=== PATIENT | female | born 1975 | race Caucasian/White ===

== ENCOUNTER 2020-02-26 08:12 | Outpatient (CLI) | payer OTHER, SELFPAY ==
--- NOTE | ~2020-02-26 | MM_ITS ---
EXAMINATION: MM scrn mera implant BI w iron HISTORY: Screening mammogram TECHNIQUE: Craniocaudal and mediolateral oblique 3-D tomosynthesis images with implant displacement a nd synthetic 2-D images were generated. Craniocaudal and mediolateral oblique views of the breasts wi thout implant displacement were obtained using full field digital mammography. CAD analysis was submi tted and interpreted. COMPARISON: 02/09/1920 01/26/2018, 07/30/2015 BREAST PARENCHYMAL COMPOSITION: There are scattered areas of fibroglandular density. FINDINGS: There is no evidence of suspicious mass, calcification, or architectural distortion to sugg est malignancy in either breast. There has been no suspicious interval change. IMPRESSION: 1. No mammographic evidence of malignancy. 2. Recommend routine screening mammography in one year. BI-RADS Category 1: Negative Reviewed, dictated and finalized at location A.
== END 2020-02-26 08:13 | disposition home or self-care (01) ==
PROVIDERS: PCP Family Medicine; Visit Provider Obstetrics & Gynecology
DX: Z12.31 Encounter for screening mammogram for malignant neoplasm of breast (principal)
CPT/HCPCS: 77063; 77067

== ENCOUNTER 2021-03-02 08:45 | Outpatient (CLI) | payer OTHER, SELFPAY ==
--- NOTE | ~2021-03-02 | MM_ITS ---
EXAMINATION: MM scrn mera implant BI w iron HISTORY: Screening mammogram TECHNIQUE: Craniocaudal and mediolateral oblique 3-D tomosynthesis images with implant displacement a nd synthetic 2-D images were generated. Craniocaudal and mediolateral oblique views of the breasts wi thout implant displacement were obtained using full field digital mammography. CAD analysis was submi tted and interpreted. COMPARISON: Comparison to multiple prior studies sequentially, with oldest reviewed study dated 01/26. BREAST PARENCHYMAL COMPOSITION: The breasts are heterogeneously dense, which may obscure small masses . FINDINGS: There is no evidence of suspicious mass, calcification, or architectural distortion to sugg est malignancy in either breast. There has been no suspicious interval change. IMPRESSION: 1. No mammographic evidence of malignancy. 2. Recommend routine screening mammography in one year. BI-RADS Category 1: Negative Reviewed, dictated and finalized at location A.
== END 2021-03-02 08:46 | disposition home or self-care (01) ==
LOC: ANHIMG 08:46
PROVIDERS: PCP Family Medicine; Visit Provider Obstetrics & Gynecology
DX: Z12.31 Encounter for screening mammogram for malignant neoplasm of breast (principal)
CPT/HCPCS: 77063; 77067

== ENCOUNTER 2021-12-07 00:04 | Day surgery (SDC) | payer OTHER, SELFPAY ==
[2021-11-18 12:57] VITALS: BMI 21.5
[2021-12-07 07:14] VITALS: BP 103/62; PULSE 63; RESP 16; TEMP 36.4; O2SAT 100
[2021-12-07] MEDS: LACTATED RINGERS 1,000 ML 150 ML IV CONT (07:20)
--- NOTE | 2021-12-07 07:58 | PM.HPGS ---
History of Present Illness History of Present Illness Consent: Risks, benefits, and alternatives have been discussed and questions answered. Patient agrees to proceed with procedure. Chief complaint: neoplasm screening Narrative: Adriana Esquivel is a 46 year old female here for screening colonoscopy Review of Systems Constitutional: Constitutional: Denies headache(s) and Denies weakness Eyes: Eyes: Denies blurry vision ENT: Reports Normal hearing present, Denies headache(s) and Denies neck pain Cardiovascular: Cardiovascular: Denies chest pain and Denies dyspnea Respiratory: Respiratory: Denies dyspnea Gastrointestinal: Gastrointestinal: Reports no additional gastrointestinal complaints Genitourinary: Genitourinary: Denies dysuria Musculoskeletal: Musculoskeletal: Denies neck pain Integumentary/Breasts: Skin/Breast: Denies dry skin Neurologic: Reports Normal hearing present, Denies headache(s) and Denies weakness Psychiatric: Psychiatric: Denies anxiety Endocrine: Endocrine: Denies change in body appearance Hematologic/Lymphatic: Hematologic/Lymphatic: Denies easy bleeding Allergic/Immunologic: Allergic/Immunologic: Denies urticaria PMF Past Medical History Medical History (Updated 12/07/21 @ 07:59 by Les Tran MD) Colon cancer screening History of asthma Irritable bowel syndrome with diarrhea Surgical History Surgical History History of breast augmentation (~08/2015) History of endometrial ablation (~2018) History of tubal ligation (~2017) Previous section x 3 2001, 2006, 2010 S/P cholecystectomy Family History Family History Mother Hypertension Father Family history of elevated blood lipids Grandparent Cerebrovascular accident Carcinoma of colon Diabetes mellitus Social History Social History Smoking status: Never smoker Second hand tobacco smoke exposure: No Alcohol intake: current Drinks per week: 3 Substance use type: does not use Living arrangements: with family Spiritual care concerns: No Meds Home Medications and Allergies Home Medications Medication Instructions Recorded Confirmed Type multivitamin (Daily Multi-Vitamin 1 tablet PO DAILY 06/11/19 12/07/21 History tablet) lactobacillus combination no.8 3 3,000 mmu cells PO DAILY 07/14/20 12/07/21 History billion cell capsule (Adult Probiotic) cholecalciferol (vitamin D3) 50 50 mcg PO DAILY 05/06/21 12/07/21 History mcg (2,000 unit) capsule ferrous sulfate 325 mg (65 mg 325 mg PO DAILY #90 tabs 05/06/21 12/07/21 Rx iron) tablet,delayed release Allergies Allergy/AdvReac Type Severity Reaction Status Date / Time No Known Allergies Allergy Verified 12/07/21 07:13 Vital Signs Vital Signs - 24 hr 12/07/21 07:14 Temperature 97.5 F L Pulse Rate 63 Respiratory Rate 16 Blood Pressure 103/62 Pulse Oximetry 100 Oxygen Delivery Room Air Exam Const: General: comfortable and no acute distress HENMT: General nose exam: Normal nares present Eyes: General: appearance normal, both eyes and all related structures Neck: Neck: no JVD Resp: Auscultation: clear to auscultation bilaterally Cardio: Rate: regular rate Rhythm: regular rhythm GI: Inspection: non-distended GI Palp: Yes Soft to palpation Skin: General skin exam: normal color Neuro: General: gait normal Speech: normal speech Extrem: General: normal to inspection Psych: Mental Status: mental status grossly normal Assessment and Plan Assessment and plan (1) Colon cancer screening: Code(s): Z12.11 - Encounter for screening for malignant neoplasm of colon Status: Acute Assessment and Plan: colonoscopy
--- NOTE | 2021-12-07 08:01 | WPDANESEPPF ---
Anes - Initial Pre Proc Eval Procedure: Operation Date: 12/07/21 08:30 Proposed Procedures p Screening Colonoscopy - Les Tran MD Date/Time: 12/07/21 08:01 Surgeon: Les Tran MD Pre Op Diagnosis: neoplasm screening Patient Data Age: 46 Gender: F Height: 1.63 m Weight: 54.4 kg Last Vital Signs Temp 97.5 F L 12/07/21 07:14 Pulse 63 12/07/21 07:14 Resp 16 12/07/21 07:14 BP 103/62 12/07/21 07:14 Pulse Ox 100 12/07/21 07:14 O2 Del Method Room Air 12/07/21 07:14 Allergies Allergy/AdvReac Type Severity Reaction Status Date / Time No Known Allergies Allergy Verified 12/07/21 07:13 Home Medications Medication Instructions Recorded Confirmed Type multivitamin (Daily Multi-Vitamin 1 tablet PO DAILY 06/11/19 12/07/21 History tablet) lactobacillus combination no.8 3 3,000 mmu cells PO DAILY 07/14/20 12/07/21 History billion cell capsule (Adult Probiotic) cholecalciferol (vitamin D3) 50 50 mcg PO DAILY 05/06/21 12/07/21 History mcg (2,000 unit) capsule ferrous sulfate 325 mg (65 mg 325 mg PO DAILY #90 tabs 05/06/21 12/07/21 Rx iron) tablet,delayed release Patient hx anesthesia problems: none Family hx anesthesia problems: none Results Review: All pre-operative results and documents have been reviewed as part of the pre-operative evaluation. [facility] Past Medical History Medical History (Updated 12/07/21 @ 07:59 by Les Tran MD) Colon cancer screening History of asthma Irritable bowel syndrome with diarrhea Surgical History Surgical History History of breast augmentation (~08/2015) History of endometrial ablation (~2018) History of tubal ligation (~2018) Previous section x 3 2001, 2005, 2009 S/P cholecystectomy Family History Family History Mother Hypertension Father Family history of elevated blood lipids Grandparent Cerebrovascular accident Carcinoma of colon Diabetes mellitus Social History Social History Smoking status: Never smoker Second hand tobacco smoke exposure: No Alcohol intake: current Drinks per week: 3 Substance use type: does not use Living arrangements: with family Spiritual care concerns: No Anes - Eval Final PreProcedure Day of Procedure 12/07/21 08:01 Patient weight: normal Heart: regular rate and rhythm Lungs: clear to auscultation Airway: Mallampati scale class II Neurological: alert and oriented Last oral intake: >/= 8 hours ASA classification: II Emergent: no Anesthetic plan: proceed Anesthesia type and monitoring: general GIVS and standard monitoring Results Review: All pre-operative results and documents have been reviewed as part of the pre-operative evaluation. Informed Consent: The patient's anesthetic plan and its attendant risks and benefits were discussed with the patient/family/POA. Questions were solicited and answers provided to the satisfaction of the patient/family/POA.
[2021-12-07 08:24] VITALS: BP 112/65; PULSE 80; RESP 23; O2SAT 98
[2021-12-07 08:34] VITALS: BP 117/68; PULSE 67; RESP 27; O2SAT 100
[2021-12-07 08:44] VITALS: BP 113/66; PULSE 62; RESP 19; O2SAT 99
== END 2021-12-07 08:53 | disposition home or self-care (01) ==
PROVIDERS: PCP Family Medicine; Referring Provider Obstetrics & Gynecology; Visit Provider Internal Medicine Gastroenterology
PROC: 0DJD8ZZ Inspection of Lower Intestinal Tract, Via Natural or Artificial Opening Endoscopic (ICD-10-PCS; CPT 45378; principal; 2021-12-07 08:30)
DX: Z12.11 Encounter for screening for malignant neoplasm of colon (principal); K64.8 Other hemorrhoids; J45.909 Unspecified asthma, uncomplicated; K58.0 Irritable bowel syndrome with diarrhea; Z90.49 Acquired absence of other specified parts of digestive tract
CPT/HCPCS: 45378; J2704; J7120

== ENCOUNTER 2022-04-09 08:41 | Outpatient (CLI) | payer OTHER, SELFPAY ==
--- NOTE | ~2022-04-09 | MM_ITS ---
EXAMINATION: MM scrn mera implant BI w iron HISTORY: Screening mammogram TECHNIQUE: Craniocaudal and mediolateral oblique 3-D tomosynthesis images with implant displacement a nd synthetic 2-D images were generated. Craniocaudal and mediolateral oblique views of the breasts wi thout implant displacement were obtained using full field digital mammography. CAD analysis was submi tted and interpreted. COMPARISON: Comparison to multiple prior studies sequentially, with oldest reviewed study dated 01/26. BREAST PARENCHYMAL COMPOSITION: There are scattered areas of fibroglandular density. FINDINGS: There are bilateral subpectoral silicone implants. There is a new focal asymmetry in the up per outer quadrant of the right breast on implant views. The left breast is stable without evidence f or malignancy. IMPRESSION: 1. New focal left breast asymmetry upper outer quadrant of the right breast. 2. Additional mammographic views and possible breast ultrasound are recommended. BI-RADS Category 0: Incomplete: Needs additional imaging evaluation. Reviewed, dictated and finalized at location B. URE PRESS SET UP OPERATOR IMPRESSION: 1. New focal left breast asymmetry upper outer quadrant of the right breast. 2. Additional mammographic views and possible breast ultrasound are recommended . BI-RADS Category 0: Incomplete: Needs additional imaging evaluation.
== END 2022-04-09 08:42 | disposition home or self-care (01) ==
LOC: ANHIMG 08:44
PROVIDERS: PCP Family Medicine; Visit Provider Obstetrics & Gynecology
DX: Z12.31 Encounter for screening mammogram for malignant neoplasm of breast (principal); R92.8 Other abnormal and inconclusive findings on diagnostic imaging of breast
CPT/HCPCS: 77063; 77067

== ENCOUNTER 2022-04-29 12:31 | Outpatient (CLI) | payer OTHER, SELFPAY ==
--- NOTE | ~2022-04-29 | MMUS_ITS ---
EXAMINATION: MM diag mera implant RT w iron, US breast RT limited HISTORY: New focal right breast asymmetry reported in upper outer quadrant TECHNIQUE: Additional 3-D tomosynthesis images of the right breast were performed and synthetic 2-D i mages were generated. CAD analysis was submitted and interpreted. High resolution right upper outer q uadrant and right lower outer quadrant breast ultrasound was performed. COMPARISON: 04/09/2022 bilateral screening mammogram FINDINGS: MAMMOGRAPHIC FINDINGS: No suspicious mass or architectural distortion, malignant calcification, skin thickening or retractio n of the right breast is detected. ULTRASOUND: No suspicious mass or shadowing is detected in the upper outer and lower-outer quadrants of the right breast. IMPRESSION: 1. No mammographic evidence of malignancy 2. Routine annual mammographic screening is recommended. BI-RADS Category 1: Negative Reviewed, dictated and finalized at location A. LINE YARDER IMPRESSION: 1. No mammographic evidence of malignancy 2. Routine annual mammographic screening is recommended. BI-RADS Category 1: Negative
== END 2022-04-29 12:32 | disposition home or self-care (01) ==
LOC: ANHIMG 12:32
PROVIDERS: PCP Family Medicine; Visit Provider Obstetrics & Gynecology
DX: R92.8 Other abnormal and inconclusive findings on diagnostic imaging of breast (principal)
CPT/HCPCS: 76642; 77061; 77065; G0279

== ENCOUNTER 2023-04-28 14:14 | Outpatient (CLI) | payer OTHER, SELFPAY ==
--- NOTE | ~2023-04-28 | MM_ITS ---
EXAMINATION: MM scrn mera implant BI w iron HISTORY: Screening mammogram TECHNIQUE: Craniocaudal and mediolateral oblique 3-D tomosynthesis images with implant displacement a nd synthetic 2-D images were generated. Craniocaudal and mediolateral oblique views of the breasts wi thout implant displacement were obtained using full field digital mammography. CAD analysis was submi tted and interpreted. COMPARISON: 04/29/2022 diagnostic right implant mammogram and do mid and right breast ultrasound, rep orted negative 04/09/2022, 03/02/2021, 02/26/2020 bilateral implant screening mammogram examinations BREAST PARENCHYMAL COMPOSITION: The breasts are heterogeneously dense, which may obscure small masses . FINDINGS: Status post bilateral augmentation mammoplasty. There is no evidence of suspicious mass, ca lcification, or architectural distortion to suggest malignancy in either breast. There has been no carlos spicious interval change. IMPRESSION: 1. No mammographic evidence of malignancy. 2. Recommend routine screening mammography in one year. BI-RADS Category 1: Negative Reviewed, dictated and finalized at location A. T ASSISTANT MANAGER
== END 2023-04-28 14:15 | disposition home or self-care (01) ==
PROVIDERS: PCP Family Medicine; Visit Provider Obstetrics & Gynecology
DX: Z12.31 Encounter for screening mammogram for malignant neoplasm of breast (principal)
CPT/HCPCS: 77063; 77067

== ENCOUNTER 2023-06-20 14:32 | Outpatient (CLI) | payer OTHER, SELFPAY ==
--- NOTE | 2023-06-20 14:40 | ECHO_ITS ---
Patient Info Name: Adriana Esquivel Age: 47 years : 1975 Gender: Female Ht: 62 in Wt: 127 lbs BSA: 1.59 m2 HR: 73 bpm BP: 116 / 60 mmHg Technical Quality: Fair Exam Date: 06/20/2023 2:54 PM Exam Location: Echo Lab Patient Status: Outpatient Admit Date: 06/20/2023 Staff Ordering Physician: Jayshree Mireles MD Machine Whitener: Attending Provider: Jayshree Mireles MD Exam Type: CA echo doppler color flow Study Info Indications R01.1 - Cardiac murmur, unspecified Complete two-dimensional, color flow and Doppler transthoracic echocardiogram is performed. Summary 1. Complete two-dimensional, color flow and Doppler transthoracic echocardiogram is performed. 2. Left ventricular chamber dimension is normal. 3. Left ventricular systolic function is normal, estimated at 60-65%. 4. The left ventricular diastolic function is normal. 5. E/e' 7 is minimally elevated. 6. There is mild aortic valve sclerosis. 7. There is trace tricuspid valve regurgitation. 8. RVSP is not calculated due to an inadequate TR jet. Left Ventricle E/e' 7 is minimally elevated. Left ventricular chamber dimension is normal. Left ventricular systolic function is normal, estimated at 60-65%. The left ventricular diastolic function is normal. Right Ventricle Right ventricular systolic function is normal and with normal TAPSE 2.1 cm. Right ventricular chamber dimension is normal. Left Atria Left atrial chamber dimension is normal. Right Atria Right atrial chamber dimension is normal. Aortic Valve The aortic valve is trileaflet. There is mild aortic valve sclerosis. There is no aortic valve stenosis. There is no aortic valve regurgitation. Pulmonic Valve There is no pulmonic regurgitation. Mitral Valve There is no mitral valve stenosis. There is no mitral valve regurgitation. Tricuspid Valve There is trace tricuspid valve regurgitation. RVSP is not calculated due to an inadequate TR jet. Pericardium/Pleural There is no pericardial effusion. Inferior Vena Cava Normal inferior vena cava with >50% collapse upon inspiration consistent with normal right atrial pressure, 5 mmHg. Aorta The aortic root size at the sinus of Valsalva is normal. Left Ventricular Outflow Tract Name Value Normal LVOT 2D LVOT Diameter 2.0 cm LVOT Doppler LVOT Peak Gradient 4 mmHg LVOT Mean Gradient 2 mmHg LVOT VTI 20 cm LVOT VTI/AV VTI Ratio 0.6 LVOT Stroke Volume 61 ml LVOT CO 4.2 l/min LVOT CI 2.7 l/min/m2 Pulmonic Valve Name Value Normal PV Doppler PV Peak Gradient 2 mmHg Mitral Valve Name Value Normal
== END 2023-06-20 14:33 | disposition home or self-care (01) ==
PROVIDERS: PCP Family Medicine; Visit Provider Family Medicine
DX: R60.9 Edema, unspecified (principal); R93.1 Abnormal findings on diagnostic imaging of heart and coronary circulation; I35.8 Other nonrheumatic aortic valve disorders; I07.1 Rheumatic tricuspid insufficiency
CPT/HCPCS: 93306

== ENCOUNTER 2024-04-28 10:51 | Emergency (ER) | payer OTHER, SELFPAY ==
[2024-04-28 10:59] VITALS: BP 103/62; PULSE 68; RESP 16; TEMP 36; O2SAT 99
--- NOTE | 2024-04-28 11:18 | ED.URI ---
HPI - URI/Sore Throat General Chief Complaint: Upper Respiratory Infection Stated Complaint: Sinus Time Seen by Provider: 04/28/24 11:19 Source: patient, RN notes reviewed and old records reviewed Mode of arrival: ambulatory Limitations: no limitations History of Present Illness HPI Narrative: Patient presents with complaints of chest congestion and cough. She reports that symptoms began about a month ago with some sinus congestion and drainage. She reports that she began feeling better, then about a week ago she began to feel as though everything had settled into her chest. She reports productive cough, excessive sputum. She does report a history of asthma, states that has not been bothersome in several years, but she is noticing some wheezing over the past few days. She denies any respiratory distress. She reports that she is more tired than normal, is beginning to lose her appetite. She denies any fever, does report some chills Related Data Home Medications ?Medication ?Instructions ?Recorded ?Confirmed ?Last Taken ?Type multivitamin (Daily Multi-Vitamin 1 tablet PO DAILY 06/11/19 04/28/24 12/04/21 History tablet) calcium 600 mg (as 1 cap PO DAILY 05/15/23 04/28/24 Unknown History carbonate)-vitamin D3 25 mcg (1,000 unit) capsule cetirizine 10 mg tablet (Zyrtec) 10 mg PO DAILY 05/15/23 04/28/24 Unknown History fluticasone propionate 50 2 spray intranasal DAILY 05/15/23 04/28/24 Unknown History mcg/actuation nasal spray,suspension magnesium hydroxide 400 mg (170 mg 400 mg PO DAILY 05/15/23 04/28/24 Unknown History magnesium) chewable tablet Allergies Allergy/AdvReac Type Severity Reaction Status Date / Time No Known Allergies Allergy Verified 04/28/24 11:42 Review of Systems Review of Systems: All systems reviewed & are unremarkable except as noted in HPI and below Constitutional: Constitutional: Reports no additional constitutional complaints, Reports lethargy and Reports poor appetite ENT: Reports system reviewed and no additional complaints, except as documented and Reports nasal congestion Cardiovascular: Cardiovascular: Reports no additional cardiovascular complaints Respiratory: Respiratory: Reports no additional respiratory complaints, Reports change in phlegm color, Reports chest congestion, Reports cough, Reports excessive phlegm production and Reports wheezing Gastrointestinal: Gastrointestinal: Reports no additional gastrointestinal complaints PMFSH Past Medical History Medical History Environmental allergies Dyslipidemia History of asthma Irritable bowel syndrome with diarrhea Surgical History Surgical History History of endometrial ablation (~2018) S/P cholecystectomy History of breast augmentation (~08/2015) Previous section x 3 2001, 2005, 2010 History of tubal ligation (~2017) Family History Family History Mother Hypertension Father Family history of elevated blood lipids Grandparent Cerebrovascular accident Carcinoma of colon Diabetes mellitus Social History Social History Smoking status: Never smoker Second hand tobacco smoke exposure: No Alcohol intake: current Drinks per week: 3 Substance use: never Substance use type: does not use Lack of Transportation: No Lack of Food: Never True Current Housing: I Have Housing Concerned About Future Housing: No Difficulty Paying Gas/Electric Bills: No Difficulty Paying for Meds: No Currently Unemployed: No Education: Associate Degree Difficulty w/ Childcare or Family Care: No Living arrangements: with family Spiritual care concerns: No Comments At the time of my signature, I reviewed and agree with the nursing past medical, surgical, social, and family history. There is no relevant family history pertinent to the patient complaint. Exam Const: General: cooperative, no acute distress, alert and awake Orientation/consciousness: oriented to person, oriented to place and oriented to time HENMT: Head: normal to inspection Ears: TM's normal bilaterally Mouth: Yes moist mucous membranes Throat: posterior oropharynx abnormal erythema Resp: Effort & Inspection: normal respiratory effort and able to speak in complete sentences Auscultation: clear to auscultation bilaterally, crackles on the right in the lower lung antoine, no rales, no rhonchi and no wheezes Cardio: Palpation: normal PMI Rate: regular rate Rhythm: regular rhythm Heart sounds: S1 normal heart sound present and S2 normal heart sound present Neuro: General: oriented to person, oriented to place and oriented to time Cranial nerves: Yes CN's II-XII intact bilaterally Psych: Appearance: grossly normal Thought process: Normal thought process present Insight: Good insight present (Psych) Judgement: Good judgement present (Psych) Course Course Level of Care: Express Care Visit Vital Signs Vital signs: Vital Signs Temperature 96.8 F L 04/28/24 10:59 Pulse Rate 68 04/28/24 10:59 Respiratory Rate 16 04/28/24 10:59 Blood Pressure 103/62 04/28/24 10:59 Pulse Oximetry 99 04/28/24 10:59 Oxygen Delivery Room Air 04/28/24 10:59 Temperature 96.8 F L 04/28/24 10:59 Pulse Rate 68 04/28/24 10:59 Respiratory Rate 16 04/28/24 10:59 Blood Pressure 103/62 04/28/24 10:59 Pulse Oximetry 99 04/28/24 10:59 Oxygen Delivery Room Air 04/28/24 10:59 Reviewed MDM - URI/Sore Throat MDM Narrative Medical decision making narrative: History and exam consistent with atypical pneumonia that is prevalent in the community at this time. Patient nontoxic appearing, stable for discharge home on p.o. antibiotic therapy. Discharge instructions reviewed with patient, as well as provided in writing per nursing staff. The instructions also include specific and strict return/GO TO THE ER as well as f/u information. All questions have been answered, and the patient deny any further questions with discharge and discharge plan. Some parts of this dictation were generated by voice recognition software and may contain typographical and/or grammatical inaccuracies. Discharge Plan Discharge Clinical Impression: Atypical pneumonia Patient Disposition: Home, Self-Care Condition: Stable Instructions: Antibiotic Form, Community Acquired Pneumonia (ED) Additional Instructions: Take medications as prescribed. Follow-up with primary care provider. Emergency department for new or worse symptoms Patient Language: Lithuanian Prescriptions: New azithromycin 250 mg tablet See Rx Instructions .ROUTE .COMPLEX Qty: 6 0RF Rx Instructions: For 250 mg dose pack: take 500 mg today (day 1), then 250 mg for 4 days (days 2-5) prednisone 50 mg tablet 50 mg PO DAILY Qty: 5 0RF albuterol sulfate [Ventolin HFA] 90 mcg/actuation HFA aerosol inhaler 2 puff inhalation QID PRN (Reason: shortness of breath or wheezing) Qty: 8.5 0RF No Action multivitamin [Daily Multi-Vitamin] Tablet 1 tablet PO DAILY ferrous sulfate 325 mg (65 mg iron) tablet,delayed release (DR/EC) 325 mg PO DAILY Qty: 90 2RF magnesium hydroxide 400 mg (170 mg magnesium) tablet,chewable 400 mg PO DAILY calcium carbonate-vitamin D3 600 mg-25 mcg (1,000 unit) capsule 1 cap PO DAILY cetirizine [Zyrtec] 10 mg tablet 10 mg PO DAILY fluticasone propionate 50 mcg/actuation spray,suspension 2 spray intranasal DAILY Rx Instructions: administer into each nostril cyanocobalamin (vitamin B-12) 1,000 mcg tablet, sublingual 1,000 mcg sublingual DAILY Qty: 90 1RF fenofibrate 40 mg tablet 40 mg PO DAILY Qty: 90 1RF Follow-up/Referrals: Jayshree Mireles MD [Primary Care Provider] - 2 Weeks Time of Disposition: 11:44
== END 2024-04-28 11:47 | disposition home or self-care (01) ==
PROVIDERS: Emergency Provider Nurse Practitioner Family; PCP Family Medicine
DX: J18.9 Pneumonia, unspecified organism (principal)
CPT/HCPCS: 99213; G0463

== ENCOUNTER 2024-04-29 08:40 | Outpatient (CLI) | payer OTHER, SELFPAY ==
--- NOTE | ~2024-04-29 | MM_ITS ---
EXAMINATION: MM scrn mera implant BI w iron HISTORY: Screening mammogram TECHNIQUE: Craniocaudal and mediolateral oblique 3-D tomosynthesis images with implant displacement a nd synthetic 2-D images were generated. Craniocaudal and mediolateral oblique views of the breasts wi thout implant displacement were obtained using full field digital mammography. CAD analysis was submi tted and interpreted. COMPARISON: 04/28/2023, 04/09/2022, 03/02/2021 BREAST PARENCHYMAL COMPOSITION: The breasts are heterogeneously dense, which may obscure small masses . FINDINGS: There is no evidence of suspicious mass, calcification, or architectural distortion to sugg est malignancy in either breast. There has been no suspicious interval change. IMPRESSION: No mammographic evidence of malignancy. Recommend routine screening mammography in one year. BI-RADS Category 1: Negative Reviewed, dictated and finalized at [facility]. RUCTOR NURSE
== END 2024-04-29 08:41 | disposition home or self-care (01) ==
LOC: ANHIMG 08:42
PROVIDERS: PCP Family Medicine; Visit Provider Nurse Practitioner Obstetrics & Gynecology
DX: Z12.31 Encounter for screening mammogram for malignant neoplasm of breast (principal)
CPT/HCPCS: 77063; 77067

== ENCOUNTER 2024-11-08 14:29 | Emergency (ER) | payer OTHER, SELFPAY ==
--- NOTE | ~2024-11-08 | XR_ITS ---
EXAM/ PROCEDURE: XR tibia fibula LT 2V - 11/08/2024 15:10 CDT HISTORY: 48 years old Female with leg anterior-mid leg pain COMPARISON: None available TECHNIQUE: Three view(s) FINDINGS/ IMPRESSION: There are no fractures or dislocations.Joint spaces are within normal limits. Reviewed, dictated and finalized at location A.
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
[2024-11-08 14:35] VITALS: BP 113/56; PULSE 68; RESP 16; TEMP 36.4; O2SAT 99
[2024-11-08] MEDS: ACETAMINOPHEN 500 MG TABLET 1000 MG PO (14:52)
[2024-11-08] MEDS: TETANUS,DIPHTHERIA,AC PERTUSSIS ADULT (0.5 ML) BOOSTRIX IM (14:53)
== END 2024-11-08 15:34 | disposition home or self-care (01) ==
PROVIDERS: Emergency Provider Nurse Practitioner Family; PCP Family Medicine
DX: S81.812A Laceration without foreign body, left lower leg, initial encounter (principal); W16.012A Fall into swimming pool striking water surface causing other injury, initial encounter; Z23 Encounter for immunization
CPT/HCPCS: 73590; 90471; 90715; 99213; A9270; G0463